=== PATIENT | male | born 1965 | race Caucasian/White ===

== ENCOUNTER 2022-09-18 13:58 | Emergency (ER) | payer BC ==
[~2022-09-18] VITALS: Ht 177.8 cm; Wt 103.3 kg
[2022-09-18 15:30] VITALS: BP 155/84
[2022-09-18] MEDS ORDERED: KETOROLAC TROMETH 60MG/2ML VIAL IM ONE (16:00)
[2022-09-18] MEDS ORDERED: CYCL-839 PO (16:30)
== END 2022-09-18 17:40 | disposition home or self-care (01) ==
LOC: ER 13:58
DX: S42.291A Other displaced fracture of upper end of right humerus, initial encounter for closed fracture (principal); S53.491A Other sprain of right elbow, initial encounter; F17.210 Nicotine dependence, cigarettes, uncomplicated; W18.39XA Other fall on same level, initial encounter; Y93.89 Activity, other specified; Y92.89 Other specified places as the place of occurrence of the external cause; Y99.8 Other external cause status
CPT/HCPCS: 73030; 73060; 73080; 96372; 99284; J1885

== ENCOUNTER 2024-05-16 16:31 | Emergency (ER) | payer BC ==
[~2024-05-16] VITALS: Ht 177.8 cm; Wt 112.2 kg
[~2024-05-16 16:31] MED LIST: CYCL-839 PO
[2024-05-16 16:49] VITALS: BP 168/96; PULSE 94; RESP 17; O2SAT 98
[2024-05-16] MEDS ORDERED: BACDST PO (17:24)
[2024-05-16] MEDS ORDERED: CEPH500C PO (17:24)
[2024-05-16] MEDS: LIDOCAINE 1% HCL (LOCAL ANESTH.) INJ 20ML MDV ID ONE (17:24)
== END 2024-05-16 17:25 | disposition left against medical advice (07) ==
LOC: ER 16:31
DX: L02.511 Cutaneous abscess of right hand (principal); R03.0 Elevated blood-pressure reading, without diagnosis of hypertension; F17.210 Nicotine dependence, cigarettes, uncomplicated; Z79.899 Other long term (current) drug therapy
CPT/HCPCS: 10060